=== PATIENT | male | born 1995 | race Caucasian/White ===

== ENCOUNTER 2017-01-27 00:14 | Emergency (ER) | payer SELFPAY ==
[~2017-01-27] VITALS: Ht 177.8 cm; Wt 73.0 kg
[2017-01-27 00:24] VITALS: BP 137/76; PULSE 60; RESP 18; TEMP 98.1; O2SAT 97
--- NOTE | 2017-01-27 00:44 | PD ---
HPI Chief Complaint: Dizziness Time Seen by Provider: 00:31 Travel History International Travel<30 days: No Contact w/Intl Traveler<30days: No Traveled to known affect area: No History of Present Illness HPI 21-year-old male presents with complaints of a possible STD exposure. The patient states that his significant other has been diagnosed with HPV. He is concerned that he may have contracted the virus. He denies any rashes or lesions. No discharge. He states that he has noticed some mild dysuria and frequency. Symptoms are mild. No exacerbating factors. No alleviating factors. PFSH Past Medical History Medical History: Denies Significant Hx Diminished Hearing: No Tetanus Vaccination: < 5 Years Past Surgical History Surgical History: No Previous Surgery Social History Alcohol Use: No Tobacco Use: No Substance Use: No Allergies-Medications (Allergen,Severity, Reaction): Coded Allergies: No Known Allergies (Unverified , 01/27/17) Review of Systems Except as stated in HPI: all other systems reviewed are Neg Physical Exam Narrative GENERAL: This is a well-nourished, well-developed patient, in no apparent distress. SKIN: No rashes, ecchymoses or lesions. Warm and dry. HEAD: Atraumatic. Normocephalic. EYES: PERRL, EOMI, no discharge or injection. No scleral icterus. EARS: Clear NOSE: Nasal turbinates appear normal. THROAT: Mucosa pink and moist. Airway patent. NECK: Trachea midline. supple, moves head freely. LUNGS: Clear to auscultation. CV: Regular in rhythm. ABDOMEN: Soft nontender. EXT: No clubbing cyanosis or edema. GENITOURINARY: UNCircumcised. Testes descended bilaterally without evidence of rotation. No lesions or erythema. No urethral discharge. Data Data Last Documented VS Vital Signs Date Time Temp Pulse Resp B/P (MAP) Pulse Ox O2 Delivery O2 Flow Rate FiO2 01/27/17 00:24 98.1 60 18 137/76 96 97 MDM Medical Decision Making Medical Screen Exam Complete: Yes Emergency Medical Condition: No Medical Record Reviewed: No Differential Diagnosis MDM: Moderate Differential diagnoses: Chlamydia, gonorrhea, syphilis, chancroid, hepatitis, HIV, herpes Narrative Course A medical screening exam was performed: At the time of evaluation the presenting medical condition was determined not to be of an emergent nature. The patient was given the option of receiving additional care, but declined. Patient was given options for additional community resources from which to obtain care. The Patient Has Been advised to seek medical attention for their presenting complaint. The patient has been advised to return to the ER at any time if an emergent condition develops. Diagnosis Primary Impression: Encounter for medical screening examination Condition: Navneet Bell Jan 27, 2017 00:44
== END 2017-01-27 00:41 | disposition left against medical advice (07) ==
LOC: NEPD 00:14
DX: Z20.2 Contact with and (suspected) exposure to infections with a predominantly sexual mode of transmission (principal); R42 Dizziness and giddiness; R30.0 Dysuria
CPT/HCPCS: 99281

== ENCOUNTER 2017-06-16 15:57 | Emergency (ER) | payer SELFPAY ==
[~2017-06-16] VITALS: Ht 177.8 cm; Wt 75.0 kg
[2017-06-16 16:04] VITALS: BP 125/77; PULSE 70; RESP 16; TEMP 99.3; O2SAT 97
[2017-06-16] MEDS ORDERED: HYDR2.5%T RECTAL (16:56)
--- NOTE | 2017-06-16 17:01 | PD ---
HPI Chief Complaint: GI Complaint Time Seen by Provider: 16:42 Travel History International Travel<30 days: Yes Contact w/Intl Traveler<30days: Yes Name of Country Traveled to: [place] Traveled to known affect area: Yes History of Present Illness HPI 22-year-old patient from [place] attending [facility], presents emergency department with history of intermittent bright red blood per rectum for several years. Patient states recently has been worse, and he was concerned today as the bolus filled with blood after bowel movement. He states he felt somewhat dizzy at that time. He states now he feels fine, he has no continued bleeding, pain, itching, or other symptoms. Patient states he has noted that after bowel movement he does have some "growths on his rectum which then seemed to go away" . Patient has never had pain. He does not have any nausea, vomiting, cramping or other symptoms. He has no known drug allergies. PFSH Past Medical History Medical History: Denies Significant Hx Diminished Hearing: No Tetanus Vaccination: Unknown Influenza Vaccination: Yes Past Surgical History Surgical History: No Previous Surgery Social History Alcohol Use: No Tobacco Use: No Substance Use: No Allergies-Medications (Allergen,Severity, Reaction): Coded Allergies: No Known Allergies (Unverified Adverse Reaction, Unknown, 06/16/17) Reported Meds & Prescriptions Reported Meds & Active Scripts Active Anusol-Hc Rectal (Hydrocortisone Rectal) 2.5% Cream 1 Applic RECTAL TID Review of Systems Except as stated in HPI: all other systems reviewed are Neg General / Constitutional: No: Fever Eyes: No: Visual changes HENT: No: Headaches Cardiovascular: No: Chest Pain or Discomfort Respiratory: No: Shortness of Breath Gastrointestinal: No: Abdominal Pain Genitourinary: No: Dysuria Musculoskeletal: No: Pain Skin: No Rash Neurologic: No: Weakness Psychiatric: No: Depression Endocrine: No: Polydipsia Hematologic/Lymphatic: No: Easy Bruising Physical Exam Narrative GENERAL: Patient appears in no acute distress. He is ambulatory without difficulty. SKIN: Warm and dry. Normal color. Normal turgor. HEAD: Atraumatic. Normocephalic. EYES: Pupils equal and round. No scleral icterus. No injection or drainage. No significant conjunctival pallor. ENT: No nasal bleeding or discharge. Mucous membranes pink and moist. Pharynx is clear. Airways patent NECK: Trachea midline. Supple CARDIOVASCULAR: Regular rate and rhythm. RESPIRATORY: No accessory muscle use. Clear to auscultation. Breath sounds equal bilaterally. GASTROINTESTINAL: Abdomen soft, non-tender, nondistended. Hepatic and splenic margins not palpable. RECTUM: No signs of external hemorrhoids other than skin tag, no fissure, nontender. No active bleeding. Guaiac negative. MUSCULOSKELETAL: Extremities without clubbing, cyanosis, or edema. No obvious deformities. NEUROLOGICAL: Awake and alert. No obvious cranial nerve deficits. Motor grossly within normal limits. Five out of 5 muscle strength in the arms and legs. Normal speech. PSYCHIATRIC: Appropriate mood and affect; insight and judgment normal. Data Data Last Documented VS Vital Signs Date Time Temp Pulse Resp B/P (MAP) Pulse Ox O2 Delivery O2 Flow Rate FiO2 06/16/17 16:04 99.3 70 16 125/77 (93) 97 MDM Medical Decision Making Medical Screen Exam Complete: Yes Emergency Medical Condition: Yes Differential Diagnosis Bright red blood per rectum. Anal fissure. Hemorrhoids. Narrative Course Based on my history and physical I feel the patient has recurrent hemorrhoids. We discussed toileting habits and the need to keep stools softer than not sit on the toilet for too long. Patient is given Anusol HC rectal suppositories to use as needed. Patient can follow-up if symptoms worsen as discussed. Diagnosis Primary Impression: Hemorrhoids Qualified Codes: K64.0 - First degree hemorrhoids Referrals: Primary Care Physician Patient Instructions: General Instructions Additional Instructions: Based on my history and physical I feel the patient has recurrent hemorrhoids. We discussed toileting habits and the need to keep stools softer than not sit on the toilet for too long. Patient is given Anusol HC rectal suppositories to use as needed. Patient can follow-up if symptoms worsen as discussed. Med/Other Pt SpecificInfo: Prescription(s) given Scripts Hydrocortisone Rectal (Anusol-Hc Rectal) 2.5% Cream 1 APPLIC RECTAL TID for Itching/Inflammation, #15 GM 0 Refills Prov: Malgorzata Caban MD 06/16/17 Disposition: DISCHARGE HOME Condition: Stable Micah Mann Jun 16, 2017 17:01
== END 2017-06-16 17:29 | disposition home or self-care (01) ==
LOC: NEPD 15:57
DX: K64.9 Unspecified hemorrhoids (principal); R42 Dizziness and giddiness
CPT/HCPCS: 99283